=== PATIENT | male | born 1960 | race African-American/Black ===

== ENCOUNTER 2021-10-27 18:36 | Emergency (ER) | payer SELFPAY ==
[~2021-10-27] VITALS: Ht 165.1 cm; Wt 72.6 kg
--- NOTE | 2021-10-27 18:48 | NUR ---
[id number] C/O PAIN WHEN URINATING SINCE SATURDAY AND BLOOD IN URINE TODAY. AMBULATORY, [id number], IN PAIN 03/24
--- NOTE | 2021-10-27 18:57 | NUR ---
AT BED SIDE
[2021-10-27] MEDS ORDERED: HYDR-4303 PO (18:59)
[2021-10-27] MEDS ORDERED: HYDROCODONE/APAP 5/325MG TABLET PO ONE (19:00)
[2021-10-27] MEDS ORDERED: HYDROCODONE/APAP 5/325MG TABLET ONE (19:13)
--- NOTE | 2021-10-27 19:19 | NUR ---
Patient discharged to home in stable condition. Written and verbal after care instructions given. Patient verbalizes understanding of instruction.
[2021-10-27 19:20] VITALS: BP 130/80
== END 2021-10-27 19:21 | disposition home or self-care (01) ==
LOC: ER 18:37
DX: R31.9 Hematuria, unspecified (principal)